=== PATIENT | female | born 1935 | race Caucasian/White ===

== ENCOUNTER → 2019-03-16 | Outpatient (CLI) | payer MEDICARE, BC ==
[~2019-03-16] MED LIST: CHLO125TA; CYCL10TA; FAMO40TA3; HYDR-4514; METO1TAB7; VITA500045
--- NOTE | 2019-03-16 13:25 | REP ---
Bilateral lower extremity arterial Doppler ultrasound: History: Peripheral vascular disease. Pain. Right leg pain. Findings: Ankle brachial indices are normal measured at 1.22 on the right and 1.01 on the left. Triphasic and biphasic waveforms are noted throughout the left lower extremity. Monophasic waveforms are noted distal to the occluded popliteal artery on the right. Severe atherosclerotic plaquing is seen. Multiple collaterals are seen in the right calf. There is a posterior tibial artery proximal stenosis on the left. Right lower extremity arterial Doppler velocity chart: CF A 122 cm/S Profunda 160 Proximal SFA 102 Mid SFA 55 Distal SFA 38/occluded Popliteal occluded Proximal AT A 19 Tibioperoneal trunk 58/15 Proximal ASPHALT BLENDER 17 Distal ASPHALT BLENDER 31 Distal AT 26 Left lower extremity arterial Doppler velocity chart: CF A 108 cm/S Profunda 63 Proximal SFA 114 Mid SFA 86 Distal SFA 55 Popliteal 54 Proximal AT A 38 Tibioperoneal trunk 54/181 Proximal ASPHALT BLENDER 53 Distal ASPHALT BLENDER 41 Distal AT A 35 Electronically Signed by Giovanny Dougherty MD 03/16/2019 01:17 P
== END ==
LOC: M RAD 11:21
PROVIDERS: ATTEND Physician Assistant
DX: I25.10 Atherosclerotic heart disease of native coronary artery without angina pectoris (principal); I70.203 Unspecified atherosclerosis of native arteries of extremities, bilateral legs; M79.606 Pain in leg, unspecified

== ENCOUNTER → 2019-03-28 | Outpatient (CLI) | payer MEDICARE, BC ==
[~2019-03-28] MED LIST changes: +HEPARIN 1,000 UNITS/ML 10ML VIAL (FOR RADIOLOGY& DIALYSIS ONLY) As Ordered ONE; +ISOVUE-300 61% 50ML VIAL (Q9967) As Ordered ONE; +LIDOCAINE 1% MDV 20ML VIAL As Ordered ONE; +LIDOCAINE 2% MDV 20 ML VIAL As Ordered ONE; +MIDAZOLAM INJ 2 MG/2 ML VIAL (J2250) As Ordered ONE; +fentaNYL 100 MCG/2 ML INJECTION (J3010) As Ordered ONE
--- NOTE | 2019-03-28 09:35 | ROOPDOC ---
[facility] Report Of Operation Report of Operation DATE OF PROCEDURE: 03/28/19 PREPROCEDURE DIAGNOSES: 1. 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 Same. PROCEDURE: 1. Aortoiliofemoral arteriogram with bilateral lower extremity runoff 2. Attempt to cross chronic total occlusion right popliteal artery, aborted 3. Angioplasty right superficial femoral artery with 4 x 100 Niotaze balloon 4. Completion arteriograms right lower extremity 5. Mynx closure left common femoral artery SURGEON: Rojas Evangelista MD ANESTHESIA: Lidocaine 3 mL local anesthesia. Moderate intravenous conscious sedation was supervised by Dr. Evangelista. The patient was independently monitored by registered nurse assigned to the Department of radiology using automated EKG, lipid pressure, and pulse oximetry. The detailed conscious sedation record is permanently housed in the hospital information system. The following is the brief sedation record: Start time 07:55, stop time 08:49, Versed 1 mg IV, fentanyl 50 g IV, heparin 5000 units IV. CONTRAST: 70 mL Isovue INDICATION FOR PROCEDURE: Ms. Dee is a very pleasant 83-year-old patient with lifestyle limiting claudication of the bilateral lower extremity is, worse in the right lower extremity. Today we discussed the risks benefits and alternatives to an arteriogram with possible angioplasty possible stenting. Her preoperative noninvasive arterial imaging suggested she had some SFA plaque, possible occlusion of the popliteal artery, and some tibial disease on the right. The same was noted on the left but to a lesser degree. After extensive review of her imaging and discussing the procedure, the patient was agreeable to proceed and informed consent was obtained. INTERPRETATION: 1. The distal aorta and iliac vessels are heavily calcified but patent with no flow-limiting stenoses present. 2. The right common femoral artery is patent with excellent flow into a large profunda that provides distal collaterals. The origin of the superficial femoral artery has about a 30% stenosis, and is heavily calcified throughout its length with a few areas of 30-40% focal stenoses. 3. The right popliteal artery is occluded at its origin and reconstitutes below the knee from extensive collaterals from the superficial femoral artery [id number] and the profunda. The tibioperoneal trunk is patent but the origin of the posterior tibial artery is thready and it fills from a large SFA collateral. The peroneal artery is widely patent. The anterior tibial artery appears patent, but due to popliteal artery occlusion is difficult to get a good picture of the tibial flow distally. 4. After multiple attempts to cross the occlusion in the popliteal artery, this was aborted. I felt the best option for the patient would either be an above- knee to below knee popliteal bypass versus a femoral to below-knee popliteal bypass. To see if the distal SFA would be suitable inflow for an above-knee to below-knee bypass, angioplasty was performed on the SFA and this did improve inflow to the SFA with resolution of the stenosis proximally, that there were a few focal areas of heavy plaque in the mid SFA but did not dramatically improve with angioplasty. Therefore, we may be better off doing a femoral to below-knee popliteal bypass if suitable vein is available. 5. The left common femoral artery is widely patent and runs off into widely patent profunda and we again see calcification of the superficial femoral artery but it appears less stenotic on the left than the right. 6. The left popliteal artery has a focal occlusion is heavily calcified throughout, but does still have some trickle flow down into the tibial vessels. It is difficult to see the tibial outflow, but it appears she has 3 vessel runo ff. REPORT OF OPERATION: The patient was brought to the angiographic suite in stable condition and placed supine on the fluoroscopic table. Her bilateral groins were prepped and draped in a sterile fashion. A timeout was performed. Sedation was administered without complication. Local anesthesia was Mr. to skin and subcutaneous tissue over the left common femoral artery. A microneedle was used to access left common femoral artery under ultrasound guidance and a wire was passed through this access under fluoroscopic guidance. A micro-sheath was placed over the wire using a Seldinger technique and the wire and inner cannula were removed and a Glidewire was advanced into the aorta under fluoroscopic guidance. We change the sheath for 6 [place] sheath and flushed the sheath with saline. Infusion catheter was placed over the wire and placed into the distal aorta. Aortoiliofemoral arteriogram was performed, please see interpretation above. We then went up and over the bifurcation with the catheter in the Glidewire and selected the common femoral artery on the right. Our sheath was exchanged over the Glidewire for 45 cm sheath and the sheath was flushed with saline. Femoral arteriogram was performed, please see interpretation above. We then selected the right mid superficial femoral artery, and right lower extremity runoff arteriograms were performed, please see interpretation above. We then attempted to cross the occlusion in the popliteal artery with a Glidewire and multiple 035 catheters, and we then made another attempt with an O18 wire and several 018 catheters but the calcification and plaque was so dense that the catheters and wires both would bend onto themselves and could not pass. We attempted to cross his for about 30-45 minutes and then it was aborted. We a ngioplasty the superficial femoral artery with a 4 x200 Niotaze balloon for multiple three-minute inflations to see if this would provide enough improvement to allow for an above-knee to below-knee bypass instead of a femoral to below- knee bypass, but I feel the safest option may still be a common femoral to below knee popliteal bypass as the superficial femoral artery still had some dense calcifications and plaque after angioplasty, but overall the flow was much improved after angioplasty. Completion arteriograms were performed and no extravasation embolization or dissection were noted. We then performed a left lower extremity arteriogram to see if the occlusion of the popliteal on the left was as significant as it we found on the right. If so, we planned to discuss bilateral bypasses with the patient at her next clinic visit, but what we found was not as severe and is likely amenable to an endovascular option. Please see interpretation above. This concluded her procedure. A minx closure device was deployed with good hemostasis. Pressure was held for 10 minutes and the patient was taken to recovery in stable condition. ESTIMATED BLOOD LOSS: Approximately 5 mL. COMPLICATIONS: None. PLAN: Our plan is to see the patient back in clinic in a week and discuss with her options for right lower extremity bypass versus an exercise program to improve her already extensive collateral circulation around the popliteal occlusion, and to discuss with her options for an endovascular approach to her left lower extremity. Further recommendations to follow after discussion. ROJAS EVANGELISTA MD Mar 28, 2019 09:35
[2019-03-28 13:00] VITALS: BP 146/88
== END ==
LOC: M IRPRO 06:51
PROVIDERS: ATTEND Surgery Vascular Surgery
DX: I70.213 Atherosclerosis of native arteries of extremities with intermittent claudication, bilateral legs (principal); I70.92 Chronic total occlusion of artery of the extremities
CPT/HCPCS: 37224; 75710; 99152; 99153; C1725; C1760; C1769; C1887; C1894; J2250; J3010; Q9967

== ENCOUNTER → 2019-05-28 | Outpatient (CLI) | payer MEDICARE, BC ==
[~2019-05-28] MED LIST changes: -HEPARIN 1,000 UNITS/ML 10ML VIAL (FOR RADIOLOGY& DIALYSIS ONLY) As Ordered ONE; -ISOVUE-300 61% 50ML VIAL (Q9967) As Ordered ONE; -LIDOCAINE 1% MDV 20ML VIAL As Ordered ONE; -LIDOCAINE 2% MDV 20 ML VIAL As Ordered ONE; -MIDAZOLAM INJ 2 MG/2 ML VIAL (J2250) As Ordered ONE; -fentaNYL 100 MCG/2 ML INJECTION (J3010) As Ordered ONE
--- NOTE | 2019-05-28 14:29 | REP ---
BILATERAL LOWER EXTREMITY DUPLEX DOPPLER ARTERIAL ULTRASOUND: Real-time ultrasound evaluation and duplex Doppler interrogation of bilateral lower extremity arterial systems is performed. Moderate diffuse partially calcified plaquing is seen bilaterally. There is once again occlusion of the right popliteal artery. There is reconstitution distally at the tibioperoneal trunk from a collateral of the distal superficial femoral artery. Monophasic waveforms are seen distal to that in the right calf. Triphasic and biphasic waveforms are otherwise seen elsewhere bilaterally. PEAK SYSTOL[employer] VELOCITY RIGHT LEFT Common femoral artery 109.9 cm/s 71.6 cm/s Profunda 91.9 68.7 Proximal SFA 100.1 120.0 Mid SFA 64.8 78.8 Distal SFA 55.8 43.0 Popliteal Occluded 68.5 Proximal HUSSAIN Not seen 32.5 Tibial/peroneal trunk 20.4 67.1 Proximal SHELL [employer]IM TOOL SETTER 20.1 52.5 Distal SHELL TRIM TOOL SETTER 26.3 70.0 Distal HUSSAIN 25.9 44.7 IMPRESSION: There is again occlusion of the right popliteal artery with reconstitution of the tibioperoneal trunk. Similar findings compared to the prior exam of 03/16/2019. Electronically Signed by Gabriele Mayo MD 05/28/2019 02:52 P
== END ==
LOC: M RAD 09:52
PROVIDERS: ATTEND Physician Assistant
DX: I70.213 Atherosclerosis of native arteries of extremities with intermittent claudication, bilateral legs (principal)

== ENCOUNTER → 2020-01-17 | Outpatient (CLI) | payer MEDICARE, BC ==
[~2020-01-17] MED LIST changes: +CYCL-707; -CYCL10TA
--- NOTE | 2020-02-28 10:06 | REP ---
BILATERAL LOWER EXTREMITY DUPLEX DOPPLER ARTERIAL ULTRASOUND CLINICAL HISTORY: Peripheral vascular disease. TECHNIQUE: Real-time ultrasound evaluation and Duplex Doppler interrogation of bilateral lower extremity arterial systems is performed. FINDINGS: Severe atherosclerotic plaquing is seen diffusely bilaterally. There is stenosis of the proximal right superficial femoral artery. Right popliteal artery is occluded with revascularization of the tibial peroneal trunk. Biphasic and triphasic wave forms are seen. There is a mid superficial femoral artery with the more distal vessels demonstrating monophasic waveforms. There are likely multiple areas of stenosis throughout the left lower extremity arterial system. Triphasic waveforms are seen in the common femoral artery. There is also triphasic waveform in the proximal superficial femoral artery. More distally, monophasic waveforms are seen. VELOCITY CHART PSV RIGHT (cm/s) PSV LEFT (cm/s) Femoral artery 82.1 186 Profunda 104.1 56.7 Proximal SFA 171.9 130.9 Mid-SFA 57.8 140 Distal SFA 19.2 164.7 Popliteal Occluded 54.2 Proximal HUSSAIN 19.9 36.2 Tibioperoneal trunk Reversed 24.9 44.9 Proximal [employer] 29.6 26 Distal [employer] 53.5 52.6 Distal HUSSAIN 32.9 35.3 MTDD
== END ==
LOC: M RAD 14:20
PROVIDERS: ATTEND Surgery Vascular Surgery
DX: I70.213 Atherosclerosis of native arteries of extremities with intermittent claudication, bilateral legs (principal)